=== PATIENT | male | born 2000 | race Caucasian/White ===

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

== ENCOUNTER 2021-09-07 14:41 | Emergency (ER) | payer OTHER ==
[2021-09-07 14:55] VITALS: BP 125/66; PULSE 65; TEMP 97.9; BMI 22.0
[2021-09-07] MEDS ORDERED: SODIUM CHLORIDE 0.9% 500 ML INFUS.BAG IV ONE ×2 (15:16→17:58)
[2021-09-07] MEDS ORDERED: levETIRAcetam 500 MG/5 ML INJECTION VIAL IVPB ONE ×2 (15:16→15:32)
[2021-09-07 16:55] LABS: BASO % 0.3 % (0-2.0); EOS % 0.2 % (0-4.5); HEMATOCRIT 44.6 % (35.4-49); HEMOGLOBIN 14.3 GM/dL (11.7-16.9); LYMPH % 8.3 % (8-40); MEAN CELL VOLUME 87.5 fl (80-96); MEAN PLT VOLUME 8.2 fl (7.5-11.1); MONO % 4.6 % (3.8-10.2); NEUT % 86.6 % (42.8-82.8); PLATELET COUNT 260 10^3/uL (134-434); RDW 14.2 % (11.9-15.9); WHITE BLOOD COUNT 12.8 K/mm3 (4.0-10.0)
[2021-09-07 17:10] LABS: ALBUMIN 4.3 g/dl (3.4-5.0); BLOOD UREA NITROGEN 10.8 mg/dL (7-18); MAGNESIUM 2.3 mg/dL (1.8-2.4)
[2021-09-07 17:13] LABS: CREATININE 0.9 mg/dL (0.55-1.3); PHOSPHOROUS 2.3 mg/dL (2.5-4.9)
[2021-09-07 17:15] LABS: TOT PROT 7.3 g/dl (6.4-8.2)
== END 2021-09-07 19:53 | disposition home or self-care (01) ==
LOC: JER 14:41
PROC: 3E033GC Introduction of Other Therapeutic Substance into Peripheral Vein, Percutaneous Approach (ICD-10-PCS; principal; 2021-09-07)
DX: R56.9 Unspecified convulsions (principal)
CPT/HCPCS: 36415; 80053; 80164; 82550; 82553; 83735; 84100; 85025; 93005; 93010; 99284-25

== ENCOUNTER 2022-06-10 16:45 | Inpatient (IN) | payer OTHER ==
[2022-06-10 17:29] VITALS: BMI 19.8
[2022-06-10] MEDS ORDERED: SODIUM CHLORIDE 0.9% 500 ML INFUS.BAG IV ONE (19:14)
[2022-06-10] MEDS ORDERED: VALPROATE SODIUM 500 MG/5 ML VIAL IVPB ONE (20:22)
[2022-06-10] MEDS ORDERED: VALPROATE SODIUM INJECTION 500 MG in DEXTROSE 5%-WATER - 100 ML IVPB ONE (20:45)
[2022-06-10] MEDS ORDERED: LORazepam 2 MG/ML SDV VIAL IVPUSH ONE (21:42)
[2022-06-10 23:39] LABS: BASO % 0.2 % (0-2.0); HEMATOCRIT 41.3 % (35.4-49); HEMOGLOBIN 13.3 GM/dL (11.7-16.9); LYMPH % 4.8 % (8-40); MCH 28.5 pg (25.7-33.7); MCHC 32.3 g/dl (32.0-35.9); MEAN CELL VOLUME 88.4 fl (80-96); MEAN PLT VOLUME 8.1 fl (7.5-11.1); MONO % 3.7 % (3.8-10.2); NEUT % 91.3 % (42.8-82.8); PLATELET COUNT 278 10^3/uL (134-434); RBC 4.67 M/mm3 (4.00-5.60); RDW 12.6 % (11.9-15.9); WHITE BLOOD COUNT 14.2 K/mm3 (4.0-10.0)
[2022-06-11 00:01] LABS: ALBUMIN 4.4 g/dl (3.4-5.0); BLOOD UREA NITROGEN 13.5 mg/dL (7-18)
[2022-06-11 00:04] LABS: CREATININE 1.1 mg/dL (0.55-1.3)
[2022-06-11 00:06] LABS: BILIRUBIN,TOTAL 1.4 mg/dL (0.2-1); TOT PROT 7.2 g/dl (6.4-8.2)
[2022-06-11] MEDS ORDERED: DEXTROSE 50%-WATER - 25 GM/50 ML VIAL IVPUSH ONE (00:12)
[2022-06-11] MEDS ORDERED: DEXTROSE 50%-WATER 25 GM/50 ML DISP.SYRIN ONE (00:19)
[2022-06-11] MEDS ORDERED: levETIRAcetam 500 MG/5 ML INJECTION VIAL IVPB ONE ×3 (00:24→09:10)
[2022-06-11] MEDS ORDERED: SODIUM CHLORIDE 1,000 ML IV SCH (01:15)
[2022-06-11 02:43] LABS: ANISOCYTOSIS 2+; MACROCYTOSIS 0; OVALOCYTE 1+
[2022-06-11 07:19] VITALS: RESP 18
[2022-06-11 08:17] LABS: BASO % 0.3 % (0-2.0); EOS % 0.4 % (0-4.5); HEMOGLOBIN 12.4 GM/dL (11.7-16.9); LYMPH % 17.1 % (8-40); MCH 28.8 pg (25.7-33.7); MCHC 32.5 g/dl (32.0-35.9); MEAN CELL VOLUME 88.4 fl (80-96); MEAN PLT VOLUME 8.1 fl (7.5-11.1); MONO % 7.9 % (3.8-10.2); NEUT % 74.3 % (42.8-82.8); PLATELET COUNT 256 10^3/uL (134-434); RDW 12.6 % (11.9-15.9); WHITE BLOOD COUNT 12.3 K/mm3 (4.0-10.0)
[2022-06-11 08:42] LABS: CHLORIDE 110 mmol/L (98-107); SODIUM 143 mmol/L (136-145)
[2022-06-11 08:50] LABS: ANION GAP 8 MMOL/L (8-16); BLOOD UREA NITROGEN 16.3 mg/dL (7-18); CALCIUM 8.6 mg/dL (8.5-10.1); CO2 25 mmol/L (21-32); GLUCOSE,RANDOM 69 mg/dL (74-106); MAGNESIUM 2.1 mg/dL (1.8-2.4)
[2022-06-11 08:52] LABS: SGOT/AST 14 U/L (15-37); SGPT/ALT 22 U/L (13-61)
[2022-06-11 08:54] LABS: BILIRUBIN,TOTAL 1.6 mg/dL (0.2-1); TOT PROT 6.3 g/dl (6.4-8.2)
[2022-06-11 08:55] LABS: ALK PHOS 56 U/L (45-117)
[2022-06-11] MEDS ORDERED: ENOXAPARIN NA (PORCINE) 40 MG/0.4 ML DISP.SYRIN SQ ONE (09:10)
[2022-06-11] MEDS ORDERED: ENOXAPARIN NA (PORCINE) 40 MG/0.4 ML DISP.SYRIN SQ SCH (10:00)
[2022-06-11] MEDS ORDERED: DIVALPROEX 500 MG, DIVALPROEX 250 MG PO SCH (10:00)
[2022-06-11] MEDS ORDERED: levETIRAcetam 500 MG/5 ML INJECTION VIAL IVPB SCH (10:00)
[2022-06-11] MEDS ORDERED: DIVALPROEX SODIUM 250 MG TABLET E.C. PO SCH (10:00)
[2022-06-11 13:14] VITALS: BP 100/45; PULSE 85; TEMP 98.5
== END 2022-06-11 14:00 | disposition home or self-care (01) | DRG 53 ==
LOC: JER 16:45 → JERBED 19:18 → OBSVTOIN 06-11 01:06
PROVIDERS: ADMIT Internal Medicine; ATTEND Internal Medicine
DX: G40.909 Epilepsy, unspecified, not intractable, without status epilepticus (principal); F12.90 Cannabis use, unspecified, uncomplicated; G43.909 Migraine, unspecified, not intractable, without status migrainosus; D72.829 Elevated white blood cell count, unspecified
CPT/HCPCS: 0241U-QW; 36415; 70450-TC; 71045-TC-FY; 80053; 80164; 80177; 82550; 82553; 82962; 83735; 84100; 85025; 93005; 93010; 99285-25; G0378

== ENCOUNTER 2022-06-13 07:42 | Observation (INO) | payer OTHER ==
[2022-06-13] MEDS ORDERED: LORazepam 2 MG/ML SDV VIAL IVPUSH ONE (07:49)
[2022-06-13] MEDS ORDERED: SODIUM CHLORIDE 0.9% 500 ML INFUS.BAG IV ONE (07:53)
[2022-06-13 08:59] LABS: BASO % 0.5 % (0-2.0); CHLORIDE 104 mmol/L (98-107); EOS % 1.2 % (0-4.5); HEMOGLOBIN 13.1 GM/dL (11.7-16.9); LYMPH % 24.2 % (8-40); MCH 30.1 pg (25.7-33.7); MCHC 34.4 g/dl (32.0-35.9); MEAN CELL VOLUME 87.4 fl (80-96); MEAN PLT VOLUME 8.3 fl (7.5-11.1); MONO % 8.4 % (3.8-10.2); NEUT % 65.7 % (42.8-82.8); PLATELET COUNT 227 10^3/uL (134-434); RBC 4.35 M/mm3 (4.00-5.60); RDW 12.5 % (11.9-15.9); SODIUM 141 mmol/L (136-145); WHITE BLOOD COUNT 9.4 K/mm3 (4.0-10.0)
[2022-06-13 09:01] LABS: BLOOD UREA NITROGEN 8.5 mg/dL (7-18); CALCIUM 9.1 mg/dL (8.5-10.1)
[2022-06-13 09:02] LABS: ALBUMIN 4.2 g/dl (3.4-5.0); ANION GAP 8 MMOL/L (8-16); CO2 28 mmol/L (21-32); GLUCOSE,RANDOM 96 mg/dL (74-106)
[2022-06-13 09:05] LABS: CREATININE 0.9 mg/dL (0.55-1.3); SGOT/AST 16 U/L (15-37); SGPT/ALT 21 U/L (13-61)
[2022-06-13 09:06] LABS: BILIRUBIN,TOTAL 0.8 mg/dL (0.2-1)
[2022-06-13 09:07] LABS: ALK PHOS 60 U/L (45-117)
[2022-06-13] MEDS ORDERED: DIVALPROEX SODIUM 250 MG TABLET E.C. PO ONE (09:53)
[2022-06-13] MEDS ORDERED: levETIRAcetam 500 MG TABLET (FP) PO ONE ×2 (09:53→09:59)
[2022-06-13] MEDS ORDERED: LACTATED RINGERS SOLUTION 1,000 ML/1,000 ML INFUS.BAG IV ONE (11:15)
[2022-06-13] MEDS: levETIRAcetam 500 MG TABLET (FP) PO SCH (21:24)
[2022-06-13] MEDS ORDERED: DIVALPROEX SODIUM 250 MG TABLET E.C. PO SCH (22:00)
[2022-06-14] MEDS ORDERED: LORazepam 2 MG/ML SDV VIAL IVPUSH PRN (07:18)
[2022-06-14] MEDS ORDERED: LACTATED RINGERS SOLUTION 1,000 ML/1,000 ML INFUS.BAG IV SCH (07:30)
[2022-06-14 09:15] LABS: BASO % 0.4 % (0-2.0); EOS % 3.3 % (0-4.5); HEMATOCRIT 38.3 % (35.4-49); HEMOGLOBIN 12.4 GM/dL (11.7-16.9); LYMPH % 37.4 % (8-40); MCH 28.6 pg (25.7-33.7); MCHC 32.3 g/dl (32.0-35.9); MEAN CELL VOLUME 88.7 fl (80-96); MEAN PLT VOLUME 8.4 fl (7.5-11.1); MONO % 7.5 % (3.8-10.2); NEUT % 51.4 % (42.8-82.8); PLATELET COUNT 220 10^3/uL (134-434); RBC 4.32 M/mm3 (4.00-5.60); RDW 12.3 % (11.9-15.9); WHITE BLOOD COUNT 7.8 K/mm3 (4.0-10.0)
[2022-06-14 09:24] LABS: INR 1.35 (0.83-1.09); PROTHROMBIN TIME (PATIENT) 15.6 SEC (9.7-13.0)
[2022-06-14] MEDS: levETIRAcetam 500 MG TABLET (FP) PO SCH ×2 (09:24→21:03)
[2022-06-14 09:37] LABS: CALCIUM 9.3 mg/dL (8.5-10.1)
[2022-06-14 09:38] LABS: ALBUMIN 3.9 g/dl (3.4-5.0); BLOOD UREA NITROGEN 11.7 mg/dL (7-18); MAGNESIUM 2.1 mg/dL (1.8-2.4)
[2022-06-14 09:40] LABS: PHOSPHOROUS 3.3 mg/dL (2.5-4.9)
[2022-06-14 09:41] LABS: CREATININE 0.8 mg/dL (0.55-1.3)
[2022-06-14 09:42] LABS: BILIRUBIN,TOTAL 1.3 mg/dL (0.2-1); TOT PROT 6.4 g/dl (6.4-8.2)
[2022-06-14] MEDS: DIVALPROEX 500 MG, DIVALPROEX 250 MG PO SCH ×2 (11:03→21:03)
[2022-06-14 11:14] LABS: COCAINE, UR NEGATIVE (NEGATIVE)
[2022-06-14 11:15] LABS: OPIATES, URI NEGATIVE (NEGATIVE)
[2022-06-14 11:16] LABS: PHENCYCLIDINE,URINE NEGATIVE (NEGATIVE)
[2022-06-14 11:17] LABS: URINE BARBITURATES NEGATIVE (NEGATIVE)
[2022-06-14 11:21] LABS: METHADONE, UR NEGATIVE (NEGATIVE); URINE AMPHETAMINES NEGATIVE (NEGATIVE); URINE BENZODIAZEPINES NEGATIVE (NEGATIVE)
[2022-06-14 18:20] VITALS: RESP 18
[2022-06-15] MEDS: levETIRAcetam 500 MG TABLET (FP) PO SCH (09:19)
[2022-06-15] MEDS: DIVALPROEX 500 MG, DIVALPROEX 250 MG PO SCH (09:19)
[2022-06-15 09:52] LABS: HEMATOCRIT 39.8 % (35.4-49); HEMOGLOBIN 13.1 GM/dL (11.7-16.9); MCH 29.1 pg (25.7-33.7); MEAN CELL VOLUME 88.3 fl (80-96); MEAN PLT VOLUME 8.7 fl (7.5-11.1); PLATELET COUNT 247 10^3/uL (134-434); RDW 12.3 % (11.9-15.9); WHITE BLOOD COUNT 8.4 K/mm3 (4.0-10.0)
[2022-06-15 10:11] LABS: BLOOD UREA NITROGEN 13.8 mg/dL (7-18); CALCIUM 9.2 mg/dL (8.5-10.1)
[2022-06-15 10:13] LABS: BILIRUBIN,DIRECT 0.2 mg/dL (0.0-0.2)
[2022-06-15 10:14] LABS: CREATININE 0.9 mg/dL (0.55-1.3)
[2022-06-15 10:15] LABS: BILIRUBIN,TOTAL 0.9 mg/dL (0.2-1)
[2022-06-15 12:39] VITALS: BP 133/70; PULSE 63; TEMP 98.7
== END 2022-06-15 15:31 | disposition home or self-care (01) ==
LOC: JER 07:42 → JERBED 10:42 → UNDOADMOB 10:42 → OBSVTOIN 11:02 → INTOOBSV 11:02 → JERBED 12:24 → J8W 12:24 → J6S 06-14 11:32 → J8W 06-14 11:32 → JERBED 06-14 12:04 → J6S 06-14 12:04 → UNDODISOB 06-15 15:31
PROVIDERS: ADMIT Internal Medicine; ATTEND Internal Medicine
PROC: 3E0337Z Introduction of Electrolytic and Water Balance Substance into Peripheral Vein, Percutaneous Approach (ICD-10-PCS; principal; 2022-06-14)
PROC: 3E033NZ Introduction of Analgesics, Hypnotics, Sedatives into Peripheral Vein, Percutaneous Approach (ICD-10-PCS; 2022-06-14)
DX: G40.909 Epilepsy, unspecified, not intractable, without status epilepticus (principal); F12.10 Cannabis abuse, uncomplicated; Z88.8 Allergy status to other drugs, medicaments and biological substances
CPT/HCPCS: 0241U-QW; 36415; 70551-TC; 71045-TC-FY; 80048; 80053; 80076; 80164; 80177; 80307; 82550; 82553; 83605; 83735; 84100; 85025; 85027; 85610; 85730; 93005; 93010; 96360; 96361; 96374; 99285-25; G0378